=== PATIENT | female | born 1950 | race Caucasian/White ===

== ENCOUNTER 2024-06-28 12:51 | Outpatient (AMB) | payer MEDICARE, MEDICAID, SELFPAY ==
--- NOTE | 2024-06-28 13:00 | PD.ORTHCLVIS ---
Vital signs 06/28/24 13:06 Height 1.55 m Height Method Stated Weight 74.134 kg Weight Measurement Method Standing Scale BMI 30.8 BP 123/67 Blood Pressure Source Automatic Cuff Blood Pressure Location Right Upper Arm Position Sitting Respiration 18 Pulse 83 Pulse Source Monitor Temp 96.9 F Temp Source Temporal Artery Scan Pulse Oximetry (%) 98 Oxygen Delivery Method Room Air Med/Allergies Allergies & Medications Allergies No Known Drug Allergies Allergy (Verified 06/28/24 13:09) Medication Reconciliation ascorbic acid (vitamin C) 1,000 mg tablet 1 g PO Q6H 01/30/24 [History Confirmed 06/28/24] aspirin 81 mg tablet,delayed release 81 mg PO QDAY 01/30/24 [History Confirmed 06/28/24] hydroxyzine HCl 25 mg tablet 25 mg PO BID PRN 01/30/24 [History Confirmed 06/28/24] meloxicam 7.5 mg tablet 7.5 mg PO QDAY #45 tabs 01/30/24 [Rx Confirmed 06/28/24] nabumetone 500 mg tablet 500 mg PO BID 01/30/24 [History Confirmed 06/28/24] omega 7-qsz-acz-fish oil 1,000 mg (120 mg-180 mg) capsule (Fish Oil) 1 cap PO QDAY 01/30/24 [History Confirmed 06/28/24] omeprazole 40 mg capsule,delayed release 40 mg PO QDAY 01/30/24 [History Confirmed 06/28/24] sertraline 25 mg tablet 25 mg PO QDAY 01/30/24 [History Confirmed 06/28/24] vitamin E (dl, acetate) 180 mg (400 unit) capsule 180 mg PO QDAY 01/30/24 [History Confirmed 06/28/24] Exam Exam Patient is in no acute distress and is cooperative with the examination today. Breathing is nonlabored. Patient has a normal mood and affect. Bilateral extremities were evaluated and demonstrates sensation intact to light touch. Palpable pedal pulses are present. No significant edema is present. Bilateral hips were examined. The patient has no pain with log roll of the hips. Internal rotation to 30 degrees and external rotation to 30 degrees is painless. Negative FADIR. Left knee was examined today. The left knee is in reasonable alignment. Range of motion from 0-120 degrees. Knee is stable to varus and valgus as well as AP translation with <5mm. Patient has a negative McMurrays. There is no pain with patellofemoral compression and no crepitus noted. The knee is nontender to palpation. The right knee was also examined. The right knee is in [varus] alignment. Range of motion from [0-115] degrees. Knee is stable to varus and valgus as well as AP translation with <5mm. Patient has a [negative] McMurrays. There is [no] pain with patellofemoral compression and [no] crepitus noted. The knee is [tender] to palpation [medially]. X-rays are not available to view. MRI demonstrates medial and lateral meniscus tears as well as Significant medial tibial edema. There is a subchondral cyst efficiency fracture as well. She obtained new x-rays from [facility]. She has completed we will continue medial joint space Assessment and Plan Problem List (1) Arthritis of right knee: Status: Acute Plan: Patient is a 73-year-old female with a right tibial subchondral insufficiency fracture. She also has severe arthritis. She is doing well with conservative treatment. We recommend a cortisone injection today Recommend knee cortisone injection as patient would like to proceed with conservative treatment at this time. The risks and benefits of the procedure were reviewed with the patient and patient gave verbal consent to continue with the procedure. Procedure: performed by Dr. Reed Using sterile technique the Right knee was thoroughly prepped with alcohol, and approximately 1 cc of Kenalog 40 mg/mL and 4 cc of 1% lidocaine was injected without resistance into the medial tibial femoral joint space. The patient tolerated the procedure. (2) Right medial tibial plateau fracture: Status: Acute Advanced Care Planning Discussion Advance care planning discussed with:: patient Office Procedures GNS Level of Care Nursing/Assessment Patient Status: Established Patient Nursing Assessment/Reassesment: Medication Reconciliation, Update PMH in EMR and Vital Signs Coordination of Care: Complex Care and Chronic Disease 1-5, Education Complex Pt/Fam, Consent,records obtained, informed consent, Results/Orders obtained and Staff clarify orders Established Patient Charge Established Patient Point Assignment: 95 Established Patient Point Charge: EP Level 3 (80-115) Surgical Proc/IM SQ injection Major Surgical Procedure: Yes (KNEE INJECTION ) Medication Given Medication Given Medication Given: Yes Documented Dose Given: 4 Route: Infiitration Medication Given Medication Given Medication Given: Yes Documented Dose Given: 1 Route: Infiitration Office Meds Xylocaine 10 mg/mL (1 %) injection solution Performing Provider: Enmanuel Reed MD Performing Location: [facility] Administered by: Enmanuel Reed MD on 06/28/24 13:11 Dose Route Admin Location Dispensed Lot Number Expiration Date [facility] Manager Labor Delivery 20 mL Infiltration 20 mL [id number] [facility] triamcinolone acetonide 40 mg/mL suspension for injection Performing Provider: Enmanuel Reed MD Performing Location: [facility] Administered by: Cynthia Almazan on 06/28/24 13:11 Dose Route Admin Location Dispensed Lot Number Expiration Date [facility] Manager Labor Delivery 40 mg intra-articular RIGHT KNEE INJECTION 1 mL 10/10/2025 06/28/24 0397-3466-37 TEVA PARENTERAL MA Intake Visit Data Collection New Patient or Established: Established Patient (seen at [facility] within 3 years) Reason for Visit:: RIGHT KNEE PAIN Seen by Clinical Staff ONLY (RN/MA): No Verbal consent obtained for Telemed visit?: No Nuclear Medicine Specialist Required: No PCP or OBGYN visit in last 3 months: Yes Hx Now: No Do You Feel Safe at Home: Yes Authorities Contacted: N/A Questionairres Past Medical History Past Medical History Have you ever been diagnosed with any of the following: Respiratory Problems Smoking: No Smoking Cessation Counseling: No Smoking Exposure: No Psychologic Problems Depression: Yes Anxiety: Yes Subjective Visit Visit for: follow up visit, knee and injections Immunization / Flu Flu Vaccine in the Last 12 Months: Yes Flu Vaccine Exclusion Criteria: Already Received History of Present Illness Chief complaint: right knee osteoarthritis Megha is a 74-year-old female with right knee pain and right knee arthritis. She had a subchondral insufficiency fracture. This the pain did doing well with cortisone injections. She would like another 1 today. She has severe arthritis in the Personal History Occupation: RETIRED Red flag PMH: BMI and none BMI Counceling provided: Yes Pain Pain level (0-10): 10 Pain duration: ALL DAY Pain location: inside (medial), outside (lateral) and anterior Pain quality: sharp and dull Pain timing: increases with activity Ambulatory data Ambulatory device: walker Treatments Improvement with previous injections: No Improvement with PT: No Improvement with NSAIDS: no Review of Systems Review of Systems: All systems negative unless otherwise noted in HPI.
[2024-06-28 13:06] VITALS: BP 123/67; PULSE 83; RESP 18; TEMP 36.1; O2SAT 98; BMI 30.8
== END 2024-06-28 13:16 | disposition home or self-care (01) ==
LOC: HODSRG 12:51
PROVIDERS: Supervising Provider Orthopaedic Surgery Adult Reconstructive Orthopaedic Surgery; Visit Provider Orthopaedic Surgery Adult Reconstructive Orthopaedic Surgery
DX: M17.11 Unilateral primary osteoarthritis, right knee (principal); S82.141D Displaced bicondylar fracture of right tibia, subsequent encounter for closed fracture with routine healing; X58.XXXD Exposure to other specified factors, subsequent encounter
CPT/HCPCS: 20610; 99213; J3301; J3490; G0463

== ENCOUNTER 2024-09-26 13:13 | Outpatient (AMB) | payer MEDICARE, MEDICAID, SELFPAY ==
--- NOTE | 2024-09-26 13:37 | PD.ORTHCLVIS ---
Vital signs 09/26/24 13:41 Height 1.55 m Height Method Stated Weight 69.91 kg Weight Measurement Method Standing Scale BMI 29.0 BP 150/67 H Blood Pressure Source Automatic Cuff Blood Pressure Location Left Upper Arm Position Sitting Respiration 19 Pulse 65 Pulse Source Monitor Temp 96.8 F Temp Source Temporal Artery Scan Pulse Oximetry (%) 97 Oxygen Delivery Method Room Air Med/Allergies Allergies & Medications Allergies No Known Drug Allergies Allergy (Verified 09/26/24 13:42) Medication Reconciliation ascorbic acid (vitamin C) 1,000 mg tablet 1 g PO Q6H 01/30/24 [History Confirmed 09/26/24] aspirin 81 mg tablet,delayed release 81 mg PO QDAY 01/30/24 [History Confirmed 09/26/24] hydroxyzine HCl 25 mg tablet 25 mg PO BID PRN 01/30/24 [History Confirmed 09/26/24] meloxicam 7.5 mg tablet 7.5 mg PO QDAY #45 tabs 01/30/24 [Rx Confirmed 09/26/24] nabumetone 500 mg tablet 500 mg PO BID 01/30/24 [History Confirmed 09/26/24] omega 4-pvs-fiz-fish oil 1,000 mg (120 mg-180 mg) capsule (Fish Oil) 1 cap PO QDAY 01/30/24 [History Confirmed 09/26/24] omeprazole 40 mg capsule,delayed release 40 mg PO QDAY 01/30/24 [History Confirmed 09/26/24] sertraline 25 mg tablet 25 mg PO QDAY 01/30/24 [History Confirmed 09/26/24] vitamin E (dl, acetate) 180 mg (400 unit) capsule 180 mg PO QDAY 01/30/24 [History Confirmed 09/26/24] Exam Exam Patient is in no acute distress and is cooperative with the examination today. Breathing is nonlabored. Patient has a normal mood and affect. Bilateral extremities were evaluated and demonstrates sensation intact to light touch. Palpable pedal pulses are present. No significant edema is present. Bilateral hips were examined. The patient has no pain with log roll of the hips. Internal rotation to 30 degrees and external rotation to 30 degrees is painless. Negative FADIR. Left knee was examined today. The left knee is in reasonable alignment. Range of motion from 0-120 degrees. Knee is stable to varus and valgus as well as AP translation with <5mm. Patient has a negative McMurrays. There is no pain with patellofemoral compression and no crepitus noted. The knee is nontender to palpation. The right knee was also examined. The right knee is in [varus] alignment. Range of motion from [0-115] degrees. Knee is stable to varus and valgus as well as AP translation with <5mm. Patient has a [negative] McMurrays. There is [no] pain with patellofemoral compression and [no] crepitus noted. The knee is [tender] to palpation [medially]. X-rays are not available to view. MRI demonstrates medial and lateral meniscus tears as well as Significant medial tibial edema. There is a subchondral cyst efficiency fracture as well. She obtained new x-rays from [facility]. She has Complete joint space obliteration of the medial joint space and osteophytes. Assessment and Plan Problem List (1) Arthritis of right knee: Status: Acute Plan: Patient is a 73-year-old female with Severe arthritis of the right knee. We thus discussed total knee replacement is a reasonable option as she has tried physical therapy, anti-inflammatories, and injections. However we do have is that she lives alone. She has no social support at all at home and she would need to go to a residential home. We would need to figure out this issue before proceeding The nature and purpose of the total hip replacement, alternative method(s) of treatment, the material risks involved, and the possibility of complications were fully explained to the patient. The patient does NOT have any of the following contraindications to [facility]: - Active infection of the hip joint, OR - Active systemic bacteremia, OR - Active skin infection or open wound at surgical site, OR - Neuropathic arthritis, OR - Severe, rapidly progressive neurological disease, OR - Severe medical condition that makes risks of the surgery outweigh the potential benefit The patient was told the most common risks and complications associated with a total hip replacement include, but are not limited to: blood clots in the leg, fatal pulmonary embolism, dislocation of the prosthesis, intraoperative and postoperative fractures of the femur or acetabulum, infection, failure of the prosthesis or grafting materials, complications from anesthesia, reactions to blood transfusions, postoperative leg length inequality, instability of the hip replacement, nerve damage or injury, vascular injury, delayed wound healing, infection, other injury or even . In addition, there are risks associated with anesthesia given during this operation. Also, the patient was told that after undergoing a total hip replacement there may still be persistent pain or disability. The patient was informed that the success of this operation in part depends upon the mechanical devices which are going to be implanted and that these devices can fail or malfunction, and may need to be repaired or replaced and there are no guarantees as to the longevity of this device or its parts and that it or its parts could fail prematurely. The patient was also notified that during the course of surgery, there may be a need to use bone graft from donors, and that any bone graft used will be carefully screened for communicable diseases, including AIDS, hepatitis, Will-Creutzfeldt, or other diseases, but despite the screening procedures, there is a small chance that they could contract one of these diseases. Finally, the patient was asked to follow completely and fully with all advice and recommended treatments, and that recovery and ultimate outcome are affected by their compliance with recommended treatment. We discussed the risks, benefits and treatment alternatives, and the patient is interested in proceeding with surgery. We will try to set this up as expeditiously as possible. (2) Right medial tibial plateau fracture: Status: Acute Advanced Care Planning Discussion Advance care planning discussed with:: patient Office Procedures GNS Level of Care Nursing/Assessment Patient Status: Established Patient Nursing Assessment/Reassesment: Medication Reconciliation, Update PMH in EMR and Vital Signs Coordination of Care: Complex Care and Chronic Disease 1-5, Education Complex Pt/Fam, Consent,records obtained, informed consent, Results/Orders obtained and Staff clarify orders Established Patient Charge Established Patient Point Assignment: 95 Established Patient Point Charge: EP Level 3 (80-115) MA Intake Visit Data Collection New Patient or Established: Established Patient (seen at [facility] within 3 years) Seen by Clinical Staff ONLY (RN/MA): No PCP or OBGYN visit in last 3 months: Yes Hx Now: No Do You Feel Safe at Home: Yes Authorities Contacted: N/A Questionairres Past Medical History Past Medical History Have you ever been diagnosed with any of the following: Respiratory Problems Smoking: No Smoking Cessation Counseling: No Smoking Exposure: No Psychologic Problems Depression: Yes Anxiety: Yes Subjective Visit Visit for: follow up visit Immunization / Flu Flu Vaccine in the Last 12 Months: No Flu Vaccine Exclusion Criteria: No Exclusion Criteria History of Present Illness Chief complaint: right knee osteoarthritis Megha is a 74-year-old female with right knee pain and right knee arthritis. She had a subchondral insufficiency fracture And severe right knee arthritis. She has had multiple injections in the past which have only helped for about a month. He is also tried anti-inflammatories and formal physical therapy with minimal relief. She reports she can only walk a short distance and is using a walker because of the pain Personal History Occupation: RETIRED Red flag PMH: BMI and none BMI Counceling provided: Yes Pain Pain level (0-10): 5 Pain duration: ALL DAY Pain location: anterior Pain quality: dull and aching Pain timing: increases with activity Associated signs & symptoms: none Ambulatory data Ambulatory device: walker Treatments Improvement with previous injections: No Improvement with PT: No Improvement with NSAIDS: no Review of Systems Review of Systems: All systems negative unless otherwise noted in HPI.
[2024-09-26 13:41] VITALS: BP 150/67; PULSE 65; RESP 19; TEMP 36; O2SAT 97; BMI 29.0
--- NOTE | 2024-09-26 13:50 | XR_ITS ---
Examination: Right knee 4 views TECHNIQUE: AP oblique lateral axial right knee 4 views Exam date and time: September 26, 2024 at 1359 hours INDICATIONS: Knee pain years. FINDINGS: Moderate to advanced tricompartment osteoarthritis, most severe medial joint space Small knee effusion No patellar dislocation There is mild depression of the medial tibial plateau, clinical correlation advised IMPRESSION: Moderate to advanced tricompartment osteoarthritis There is mild depression the medial tibial plateau, if there is recent trauma consider CT scan knee without contrast follow-up
== END 2024-09-26 13:55 | disposition home or self-care (01) ==
PROVIDERS: Supervising Provider Orthopaedic Surgery Adult Reconstructive Orthopaedic Surgery; Visit Provider Orthopaedic Surgery Adult Reconstructive Orthopaedic Surgery
DX: M17.11 Unilateral primary osteoarthritis, right knee (principal); S82.141D Displaced bicondylar fracture of right tibia, subsequent encounter for closed fracture with routine healing; X58.XXXD Exposure to other specified factors, subsequent encounter; M25.561 Pain in right knee
CPT/HCPCS: 73564; 99213; G0463

== ENCOUNTER 2024-12-05 14:00 | Outpatient (AMB) | payer MEDICARE, MEDICAID, SELFPAY ==
[2024-12-05 14:19] VITALS: BP 120/67; PULSE 68; RESP 16; TEMP 36.1; O2SAT 93
--- NOTE | 2024-12-05 14:19 | ORTHONT_ITS ---
Vital signs 12/05/24 14:19 Height 1.55 m Height Method Stated Weight 72.178 kg Weight Measurement Method Standing Scale BMI 30.0 BP 120/67 Blood Pressure Source Automatic Cuff Blood Pressure Location Left Upper Arm Position Sitting Respiration 16 Pulse 68 Pulse Source Monitor Temp 96.9 F Temp Source Temporal Artery Scan Pulse Oximetry (%) 93 L Oxygen Delivery Method Room Air Med/Allergies Allergies & Medications Allergies No Known Drug Allergies Allergy (Verified 12/05/24 14:20) Medication Reconciliation ascorbic acid (vitamin C) 1,000 mg tablet 1 g PO Q6H 01/30/24 [History Confirmed 12/05/24] aspirin 81 mg tablet,delayed release 81 mg PO QDAY 01/30/24 [History Confirmed 12/05/24] hydroxyzine HCl 25 mg tablet 25 mg PO BID PRN 01/30/24 [History Confirmed 12/05/24] meloxicam 7.5 mg tablet 7.5 mg PO QDAY #45 tabs 01/30/24 [Rx Confirmed 12/05/24] nabumetone 500 mg tablet 500 mg PO BID 01/30/24 [History Confirmed 12/05/24] omega 3-jxs-nsc-fish oil 1,000 mg (120 mg-180 mg) capsule (Fish Oil) 1 cap PO QDAY 01/30/24 [History Confirmed 12/05/24] omeprazole 40 mg capsule,delayed release 40 mg PO QDAY 01/30/24 [History Confirmed 12/05/24] sertraline 25 mg tablet 25 mg PO QDAY 01/30/24 [History Confirmed 12/05/24] vitamin E (dl, acetate) 180 mg (400 unit) capsule 180 mg PO QDAY 01/30/24 [History Confirmed 12/05/24] atorvastatin 10 mg tablet (Lipitor) 10 mg PO QDAY 12/05/24 [History Confirmed 12/05/24] Exam Exam Patient is in no acute distress and is cooperative with the examination today. Breathing is nonlabored. Patient has a normal mood and affect. Bilateral extremities were evaluated and demonstrates sensation intact to light touch. Palpable pedal pulses are present. No significant edema is present. Bilateral hips were examined. The patient has no pain with log roll of the hips. Internal rotation to 30 degrees and external rotation to 30 degrees is painless. Negative FADIR. Left knee was examined today. The left knee is in reasonable alignment. Range of motion from 0-120 degrees. Knee is stable to varus and valgus as well as AP translation with <5mm. Patient has a negative McMurrays. There is no pain with patellofemoral compression and no crepitus noted. The knee is nontender to palpation. The right knee was also examined. The right knee is in [varus] alignment. Range of motion from [0-115] degrees. Knee is stable to varus and valgus as well as AP translation with <5mm. Patient has a [negative] McMurrays. There is [no] pain with patellofemoral compression and [no] crepitus noted. The knee is [tender] to palpation [medially]. X-rays are not available to view. MRI demonstrates medial and lateral meniscus tears as well as Significant medial tibial edema. There is a subchondral cyst efficiency fracture as well. She obtained new x-rays from [facility]. She has Complete joint space obliteration of the medial joint space and osteophytes. Assessment and Plan Problem List (1) Arthritis of right knee: Status: Acute Plan: Patient is a 73-year-old female with Severe arthritis of the right knee. We thus discussed total knee replacement is a reasonable option as she has tried physical therapy, anti-inflammatories, and injections. However we do have is that she lives alone. She has no social support at all at home and she would need to go to a penitentiary home. We would need to figure out this issue before proceeding. The nature and purpose of the total hip replacement, alternative method(s) of treatment, the material risks involved, and the possibility of complications were fully explained to the patient. The patient does NOT have any of the following contraindications to HAMILTON: - Active infection of the hip joint, OR - Active systemic bacteremia, OR - Active skin infection or open wound at surgical site, OR - Neuropathic arthritis, OR - Severe, rapidly progressive neurological disease, OR - Severe medical condition that makes risks of the surgery outweigh the potential benefit The patient was told the most common risks and complications associated with a total hip replacement include, but are not limited to: blood clots in the leg, fatal pulmonary embolism, dislocation of the prosthesis, intraoperative and postoperative fractures of the femur or acetabulum, infection, failure of the prosthesis or grafting materials, complications from anesthesia, reactions to blood transfusions, postoperative leg length inequality, instability of the hip replacement, nerve damage or injury, vascular injury, delayed wound healing, infection, other injury or even . In addition, there are risks associated with anesthesia given during this operation. Also, the patient was told that after undergoing a total hip replacement there may still be persistent pain or disability. The patient was informed that the success of this operation in part depends upon the mechanical devices which are going to be implanted and that these devices can fail or malfunction, and may need to be repaired or replaced and there are no guarantees as to the longevity of this device or its parts and that it or its parts could fail prematurely. The patient was also notified that during the course of surgery, there may be a need to use bone graft from donors, and that any bone graft used will be carefully screened for communicable diseases, including AIDS, hepatitis, Will-Creutzfeldt, or other diseases, but despite the screening procedures, there is a small chance that they could contract one of these diseases. Finally, the patient was asked to follow completely and fully with all advice and recommended treatments, and that recovery and ultimate outcome are affected by their compliance with recommended treatment. We discussed the risks, benefits and treatment alternatives, and the patient is interested in proceeding with surgery. We will try to set this up as expeditiously as possible. (2) Right medial tibial plateau fracture: Status: Acute Advanced Care Planning Discussion Advance care planning discussed with:: patient Office Procedures GNS Level of Care Nursing/Assessment Patient Status: Established Patient Nursing Assessment/Reassesment: Medication Reconciliation, Update PMH in EMR and Vital Signs Coordination of Care: Complex Care and Chronic Disease 1-5, Education Complex Pt/Fam, Consent,records obtained, informed consent, Results/Orders obtained and Staff clarify orders Established Patient Charge Established Patient Point Assignment: 95 Established Patient Point Charge: EP Level 3 (80-115) MA Intake Visit Data Collection New Patient or Established: Established Patient (seen at [facility] within 3 years) Reason for Visit:: PRE OP RT TKA Seen by Clinical Staff ONLY (RN/MA): No Inside Channel Account Manager Required: No PCP or OBGYN visit in last 3 months: Yes Hx Now: No Do You Feel Safe at Home: Yes Authorities Contacted: N/A Questionairres Past Medical History Past Medical History Have you ever been diagnosed with any of the following: Respiratory Problems Smoking: No Smoking Cessation Counseling: No Smoking Exposure: No Psychologic Problems Depression: Yes Anxiety: Yes Subjective Visit Visit for: follow up visit and knee (RIGHT ) Immunization / Flu Flu Vaccine in the Last 12 Months: Yes Flu Vaccine Exclusion Criteria: Already Received History of Present Illness Chief complaint: right knee osteoarthritis Megha is a 74-year-old female with right knee pain and right knee arthritis. She had a subchondral insufficiency fracture And severe right knee arthritis. She has had multiple injections in the past which have only helped for about a month. He is also tried anti-inflammatories and formal physical therapy with minimal relief. She reports she can only walk a short distance and is using a walker because of the pain Personal History Occupation: RETIRED Red flag PMH: none BMI Counceling provided: Yes Pain Pain level (0-10): 6 Pain duration: 1 MONTH Pain location: anterior Pain quality: sharp and other (specify) (SWELLING/CRAMPING ) Pain timing: increases with activity Associated signs & symptoms: none Ambulatory data Ambulatory device: walker Walking distance (minutes): 1 Treatments Number of previous injections: 2 Improvement with previous injections: No Number of Physical Therapy sessions: 2 Improvement with PT: No Improvement with NSAIDS: n/a Review of Systems Review of Systems: All systems negative unless otherwise noted in HPI.
== END 2024-12-05 14:41 | disposition home or self-care (01) ==
LOC: HODSRG 14:00
PROVIDERS: PCP Family Medicine; Referring Provider Family Medicine; Supervising Provider Orthopaedic Surgery Adult Reconstructive Orthopaedic Surgery; Visit Provider Orthopaedic Surgery Adult Reconstructive Orthopaedic Surgery
DX: M17.11 Unilateral primary osteoarthritis, right knee (principal); S82.141D Displaced bicondylar fracture of right tibia, subsequent encounter for closed fracture with routine healing; X58.XXXD Exposure to other specified factors, subsequent encounter; M25.561 Pain in right knee
CPT/HCPCS: 99213; G0463

== ENCOUNTER 2024-12-23 06:45 | Day surgery (SDC) | payer MEDICARE, MEDICAID, SELFPAY ==
[2024-12-18 16:49] LABS: Basophils # (Auto) 0.0 Thou/mm3 (0.0-0.2); Basophils % (Auto) 1 % (0-2.5); Eosinophils # (Auto) 0.1 Thou/mm3 (0.0-0.5); Eosinophils % (Auto) 2 % (0-10); Hematocrit 34.5 % (36.0-46.0); Hemoglobin 11.8 g/dL (12.0-16.0); Immature Granulocytes Auto 0.01 Thou/mm3 (0.00-0.00); Lymphocytes # (Auto) 1.3 Thou/mm3 (1.0-4.8); Lymphocytes % (Auto) 23 % (10-50); Mean Corpuscular HGB Conc 34.2 g/dl (31.0-37.0); Mean Corpuscular Hemoglobin 30.1 pg (25.0-35.0); Mean Corpuscular Volume 88 fL (80-100); Monocytes # (Auto) 0.7 Thou/mm3 (0.0-0.8); Monocytes % (Auto) 12 % (0-12); Neutrophils # (Auto) 3.6 Thou/mm3 (1.8-7.7); Neutrophils % (Auto) 63 % (37-80); Nucleated Red Blood Cell # 0.00 Thou/mm3 (0.00-0.00); Nucleated Red Blood Cell % 0 /100 WBC (0); Platelet Count 308 Thou/mm3 (140-440); RDW Standard Deviation 44.3 fL (36.4-46.3); Red Blood Count 3.92 Miln/mm3 (4.00-5.20); White Blood Count 5.7 Thou/mm3 (3.6-11.0)
[2024-12-18 16:56] LABS: INR 1.0 (0.9-1.3); Partial Thromboplastin Time 28.9 Seconds (22.0-36.0); Prothrombin Time 11.2 Seconds (9.0-12.2)
[2024-12-18 17:16] LABS: Alanine Aminotransferase 17 U/L (10-49); Albumin, Serum 4.2 gm/dL (3.4-4.8); Albumin/Globulin Ratio 1.6 (1.2-2.2); Alkaline Phosphatase 100 U/L (46-116); Anion Gap 9 (7-16); Aspartate Amino Transferase 28 U/L (0-34); BUN/Creatinine Ratio 32 Ratio (12-20); Bilirubin,Total 0.5 mg/dL (0.3-1.2); Blood Urea Nitrogen 29 mg/dL (9-23); Calcium 9.5 mg/dL (8.3-10.6); Calcium (Corrected) 9.5 mg/dL (8.5-10.1); Carbon Dioxide 29.5 mMol/L (20.0-31.0); Chloride 105 mMol/L (98-107); Creatinine (Component) 0.9 mg/dL (0.6-1.3); Globulin 2.6 gm/dL (2.3-3.5); Glucose 101 mg/dL (74-106); Osmolality,Calculated 290 (275-295); Potassium 4.3 mMol/L (3.4-5.1); Sodium 143 mMol/L (136-145); Total Protein 6.8 gm/dL (5.7-8.2); eGFR > 60 See Note
[2024-12-19 09:57] VITALS: BMI 29.0
--- NOTE | 2024-12-20 13:56 | SUR.PREOP ---
Pt takes MS Contin daily for chronic pain, per Dr Hirsch pt ok to take med 2 hrs before arriving, pt notified.
[2024-12-23] VITALS (10 sets, daily range): BP systolic 97–161; BP diastolic 55–84; PULSE 61–84; RESP 12–20; TEMP 36.6; O2SAT 95–100; BMI 28.4; BMI 13.0
--- NOTE | 2024-12-23 07:50 | SUR.PREOP ---
Patient expressed gratitude for prayer before their procedure.
--- NOTE | 2024-12-23 07:52 | EKG_ITS ---
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
[2024-12-23] MEDS: ACETAMINOPHEN 325 MG TABLET 650 MG PO (08:24)
[2024-12-23] MEDS: RINGERS LACTATED 1000 ML 1,000 ML 20 ML IV (08:25)
[2024-12-23] MEDS: MELOXICAM 7.5 MG TABLET PO (08:25)
--- NOTE | 2024-12-23 09:08 | PD.ORTHPN ---
Subjective Subjective Brief History: right knee pain Narrative: Patient is a 74-year-old female with right knee pain. She does have a history of chronic back pain and is on morphine 30 ER as well as morphine IR. I discussed with her that she is on a lot of pain medication. Her pain management doctor will provide the pain medication after surgery and she let me know that he agreed to this. I discussed with her that she is on a lot of pain medications and that I recommend weaning if possible. She reports that she is actually already weaned her pain medication is cut in half. I discussed with her that this is still a lot of pain medication and that pain management will be very difficult after surgery as her body has likely already been desensitized to opioids. She understands this and would still like to proceed with surgery. In addition, we discussed her social support at home. She does have a sister as well as a son that lives nearby. She reports that discussing pain medications with her son is very sensitive topic and she does not want me to do this. She would like to go to a retirement facility if possible in light of these's situations. She can go home if necessary as well. I will defer to physical therapy to see how she does. We discussed the risk of surgery in great detail again and she would like to proceed with a total knee replacement. she understands that pain will be very difficult to control postoperatively. Exam Vital Signs Temp Pulse Resp BP Pulse Ox 98 F 63 18 129/79 97 12/23/24 07:22 12/23/24 07:22 12/23/24 07:22 12/23/24 07:22 12/23/24 07:22 Objective - Ortho Labs 12/18/24 16:15 12/18/24 16:15 Assessment & Plan Diagnosis (1) Arthritis of right knee: Status: Acute Assessment Additional comments: The nature and purpose of the total knee replacement, alternative method(s) of treatment, the material risks involved, and the possibility of complications were fully explained to the patient. The patient does NOT have any of the following contraindications to TKA: - Active infection of the knee joint, OR - Active systemic bacteremia, OR - Active skin infection or open wound at surgical site, OR - Neuropathic arthritis, OR - Severe, rapidly progressive neurological disease, OR - Severe medical condition that makes risks of surgery outweigh the potential benefit The patient was told the most common risks and complications associated with a total knee replacement include, but are not limited to: blood clots in the leg, fatal pulmonary embolism, dislocation of the prosthesis, intraoperative and postoperative fractures of the femur or tibia, infection, failure of the prosthesis or grafting materials, complications from anesthesia, reactions to blood transfusions, postoperative leg length inequality, instability of the knee replacement, nerve damage or injury, vascular injury, delayed wound healing, infection, other injury or even . In addition, there are risks associated with anesthesia given during this operation. Also, the patient was told that after undergoing a total knee replacement there may still be persistent pain or disability. The patient was informed that the success of this operation in part depends upon the mechanical devices which are going to be implanted and that these devices can fail or malfunction, and may need to be repaired or replaced and there are no guarantees as to the longevity of this device or its parts and that it or its parts could fail prematurely. The patient was also notified that during the course of surgery, there may be a need to use bone graft from donors, and that any bone graft used will be carefully screened for communicable diseases, including AIDS, hepatitis, Will-Creutzfeldt, or other diseases, but despite the screening procedures, there is a small chance that they could contract one of these diseases. Finally, the patient was asked to follow completely and fully with all advice and recommended treatments, and that recovery and ultimate outcome are affected by their compliance with recommended treatment. We discussed the risks, benefits and treatment alternatives, and the patient is interested in proceeding with surgery. We will try to set this up as expeditiously as possible.
--- NOTE | 2024-12-23 10:47 | PD.SUROPNT ---
Date of Procedure 12/23/24 Pre Op Diagnosis right knee osteoarthritis Post Op Diagnosis right knee osteoarthritis Procedure right total knee replacement enrique Findings full thickness cartilage loss and osteophytes Procedure Description Indication: The patient is a 74 year old who has a long history of right knee pain. X-rays show degenerative arthritis involving the knee. Over the past several years the patient has had increasing pain, progressive limitation in function. He has failed conservative measures including activity modification, physical therapy, injections, anti-inflammatories, and assistive devices. After a lengthy discussion of the risks and benefits, the patient presents now for total knee replacement. The nature and purpose of the total knee replacement, alternative method(s) of treatment, the material risks involved, and the possibility of complications were fully explained to the patient. The patient was told the most common risks and complications associated with a total knee replacement include, but are not limited to blood clots in the leg, fatal pulmonary embolism, dislocation of the prosthesis, intraoperative and postoperative fractures of the femur or tibia, infection, failure of the prosthesis or grafting materials, complications from anesthesia, reactions to blood transfusions, postoperative leg length inequality, instability of the knee replacement, nerve damage or injury, vascular injury, delayed wound healing, infections, other injury or even . In addition, there are risks associated with anesthesia given during this operation, temporary or permanent numbness on the skin lateral to the incision can be a complication unique to total knee surgery, and kneeling can be painful after knee replacement surgery. Also, the patient was told that after undergoing a total knee replacement there may still be pain or disability. We discussed with the patient that we will be using a robot-assisted technology. We discussed that there is a possibility of converting to manual instrumentation. The patient was informed that the success of this operation in part depends upon the mechanical devices which are going to be implanted and that these devices can fail or malfunction, and may need to be repaired or replaced and there are no guarantees as to the longevity of this device or its part and that it or its parts could fail prematurely. Finally, the patient was asked to follow completely and fully with all advice and recommended treatments, and that recovery and ultimate outcome are affected by their compliance with recommended treatment. Surgical technique: Patient was marked and consented in the pre-operative area. The patient was brought to the operating room and placed on the operating table in a supine position. Prior to positioning, a timeout procedure was performed between the surgeon, the anesthesiologist, and the nursing staff where the patient and the operative side were identified and confirmed. After adequate general anesthetic was obtained, the right lower extremity was prepped and draped in the usual sterile fashion. A weight based dose of Cefazolin were administered within 1 hour prior to incision. The robot was preregistered and calirated before the incision. The extremity was exsanguinated with an esmarch badge and tourniquet inflated to 250mmHg. A midline incision was made. A median parapatellar arthrotomy was made. The patella was subluxed laterally. A medial release was performed to expose the medial tibia. His femoral and tibial pins were placed through an intra incisional manner for both cases. Every effort was made to ensure that the distalmost aspect of the pin was hung in the second cortex. The arrays were then tightened several times to ensure that it was fixed for the remainder of the case. Both femoral and tibial checkpoints were then placed. We then went through the registration process of the bone. We then assessed the knee deformity and attempted to correct it. We also used the robot to aid in judging laxity in both extension and flexion. Final based on laxity and alignment we changed the preoperative assessment to obtain proper proper implant positioning and to correct deformity. Attention was then placed to the tibia. We made a tibial cut using the robot ensuring that both the MCL and the patella tendon were protected with retractors. We then went to the femur and made the posterior cut followed by the anterior cut and the anterior chamfer. The bone was then removed and we made a distal femur cut and a posterior chamfer cut. We verified all cuts. A trial reduction was performed with a size 3 femoral component and a size 3 keeled tibial component. The patella tracked centrally, and no lateral retinacular release was necessary. The trial implants were removed. The arrays, pins, and checkpoints were all removed. We performed a verification that all pins were removed. The cut bone surfaces were lavaged. A size [3] right femoral component, a size 3 keeled tibial component were impacted into position using 2 bags of palacos. A trial insert was placed into position. The knee was placed in extension until the cement hardened. The knee was felt to be well balanced in the sagittal and coronal plane. The final 3x10 mm cruciate-substituting articular insert was impacted into the tibial tray. The knee was brought out to full extension, flexed up to 120 degrees. It was stable to varus and valgus stress and appropriately balanced in flexion and extension. The wounds were copiously irrigated following deflation of tourniquet. The medial retinaculum was reapproximated with #1 vicryl and quill. The subcutaneous tissues were closed with 0 and 2-0 interrupted Vicryl. The skin was closed with 3-0 Monofilament V loc suture. A sterile dressing was applied. The patient was transferred to a bed and brought to recovery in stable condition. The patient tolerated the procedure well. There were no intraoperative complications. Sponge and needle counts were correct times 2. As the attending surgeon, I attest I was present and performed the entire operation. Grafts/Implants Size [3] CR Femur Size 3 Tibia 10mm poly CS 2 bags of palacos Anesthesia GETA Implants Petsy Pathology / specimen None Pathology comment: none Estimated Blood Loss 150 Condition Stable Disposition same day Surgeon Enmanuel Reed MD Surgical Staff Operation Date: 12/23/24 10:00 Case Staff Anesthesiologist: Duc Hirsch RNdirector clinical operations: Shana Alford
--- NOTE | 2024-12-23 10:49 | XR_ITS ---
Examination: Right knee 2 views Technique one AP lateral right knee 2 views Date and time: December 23, 2024 1147 hours INDICATIONS: Postop knee replacement FINDINGS: Total right knee replacement. Satisfactory alignment No fracture IMPRESSION: Total right knee replacement with satisfactory alignment
--- NOTE | 2024-12-23 11:10 | SUR.PHASEI ---
pt arrived to PACU via gurney with nasal airway present, breathing unlabored, dressing to right lower extremity clean, dry, and intact, pedal pulses present/equal/strong bilaterally, circulation to toes WNL, report from Amara DELEON, and Dr Hirsch
--- NOTE | 2024-12-23 11:35 | SUR.PHASEI ---
pt tolerating oral fluids without difficulty swallowing or n/v
--- NOTE | 2024-12-23 11:58 | SUR.PHASEII ---
Received report on pt. s/p surgery from Natalie Babin RN. Pt. is resting, VSS, no c/o pain or nausea at this time, dressing to right knee CDI.
--- NOTE | 2024-12-23 12:12 | SUR.PHASEII ---
Physical Therapist Nessa at bedside.
--- NOTE | 2024-12-23 12:33 | SUR.PHASEII ---
pt returning to [facility] from walking with physical therapy, dressing clean, dry, and intact to right lower extremity, will connect to monitors, report from Milena DELEON
--- NOTE | 2024-12-23 13:30 | SUR.PHASEII ---
pt awake, alert, able to follow commands, breathing unlabored, dressing to right lower extremity clean, dry, and intact, circulation to bilateral toes WNL, pedal pulses present/equal/strong bilaterally VS stable, discharge instructions given with sister Maria Victoria present, all questions answered, pt able to ambulate to bathroom with steady gait, pt able to dress self, pt discharged via wheelchair with all belongings and copies of discharge paperwork.
--- NOTE | 2024-12-27 16:58 | PD.ANESPROG ---
Documentation for date of: 12/27/24 POST ANESTHESIA NOTE: Patient had GETA and R adductor canal block for R TKA on 12/23/24. I just called and spoke with her on the phone and she denied any problems from anesthesia. Duc Hirsch MD Anesthesia Progress Note Progress Note Most recent Vital Signs: Last Vital Signs Temp 97.9 F 12/23/24 13:05 Pulse 65 12/23/24 13:05 Resp 20 12/23/24 13:05 BP 114/67 12/23/24 13:05 Pulse Ox 95 12/23/24 13:05 O2 Flow Rate 3 12/23/24 12:05
== END 2024-12-23 13:30 | disposition home or self-care (01) ==
PROVIDERS: Anesthesiology; PCP Family Medicine; Referring Provider Orthopaedic Surgery Adult Reconstructive Orthopaedic Surgery; Visit Provider Orthopaedic Surgery Adult Reconstructive Orthopaedic Surgery
PROC: (CPT 27447; principal; 2024-12-23 09:45)
DX: M17.11 Unilateral primary osteoarthritis, right knee (principal); Z01.810 Encounter for preprocedural cardiovascular examination; M25.761 Osteophyte, right knee
CPT/HCPCS: 27447; 20985; 36415; 73560; 80053; 85025; 85610; 85730; 93005; 97162; A4217; C1713; C1776; J1100; J1171; J2250; J2270; J2371; J2405; J2704; J2710; J2765; J2795; J3010; J3490; J7120; J7999; A4648; A4649; A9270; J1596

== ENCOUNTER 2025-01-07 09:36 | Outpatient (AMB) | payer MEDICARE, MEDICAID, SELFPAY ==
--- NOTE | 2025-01-07 09:42 | PD.ORTHCLVIS ---
Vital signs 01/07/25 09:58 Height 1.5 m Height Method Stated Weight 74.559 kg Weight Measurement Method Standing Scale BMI 33.1 BP 123/76 Blood Pressure Source Automatic Cuff Blood Pressure Location Left Upper Arm Position Sitting Respiration 18 Pulse 66 Pulse Source Monitor Temp 96.8 F Temp Source Temporal Artery Scan Pulse Oximetry (%) 92 L Oxygen Delivery Method Room Air Med/Allergies Allergies & Medications Allergies gabapentin Allergy (Intermediate, Verified 01/07/25 09:58) swelling trazodone Allergy (Verified 01/07/25 09:58) Blister Medication Reconciliation hydroxyzine HCl 25 mg tablet 25 mg PO HS PRN imsomnia 01/30/24 [History Confirmed 01/07/25] vitamin E (dl, acetate) 180 mg (400 unit) capsule 180 mg PO QDAY 01/30/24 [History Confirmed 01/07/25] ascorbic acid (vitamin C) 1,000 mg tablet (C-1000) 1 g PO QDAY 12/19/24 [History Confirmed 01/07/25] atorvastatin 20 mg tablet (Lipitor) 20 mg PO QDAY 12/19/24 [History Confirmed 01/07/25] calcium 600 mg (as carbonate)-vitamin D3 5 mcg (200 unit) tablet 1 tab PO BID 12/19/24 [History Confirmed 01/07/25] docusate sodium 100 mg capsule (Colace) 100 mg PO BID 12/19/24 [History Confirmed 01/07/25] esomeprazole magnesium 40 mg capsule,delayed release 40 mg PO DAILY 12/19/24 [History Confirmed 01/07/25] lactulose 10 gram/15 mL oral solution 30 g PO DAILY PRN constipation 12/19/24 [History Confirmed 01/07/25] morphine 15 mg immediate release tablet 15 mg PO DAILY PRN pain 12/19/24 [History Confirmed 01/07/25] morphine 30 mg tablet,extended release 30 mg PO DAILY 12/19/24 [History Confirmed 01/07/25] multivitamin (Daily Multi-Vitamin tablet) 1 tab PO QAM 12/19/24 [History Confirmed 01/07/25] sertraline 100 mg tablet (Zoloft) 100 mg PO QDAY 12/19/24 [History Confirmed 01/07/25] aspirin 81 mg tablet,delayed release 81 mg PO BID #60 tabs 12/23/24 [Rx Confirmed 01/07/25] doxycycline hyclate 100 mg tablet 100 mg PO BID #14 tabs 12/23/24 [Rx Confirmed 01/07/25] sennosides 8.6 mg-docusate sodium 50 mg tablet (Senna-S) 1 tab-cap PO QDAY #30 tabs 12/23/24 [Rx Confirmed 01/07/25] Exam Exam Patient is in no acute distress and is cooperative with the examination today. Breathing is nonlabored. Patient has a normal mood and affect. Bilateral extremities were evaluated and demonstrates sensation intact to light touch. Palpable pedal pulses are present. No significant edema is present. Bilateral hips were examined. The patient has no pain with log roll of the hips. Internal rotation to 30 degrees and external rotation to 30 degrees is painless. Negative FADIR. Left knee was examined today. The left knee is in reasonable alignment. Range of motion from 0-120 degrees. Knee is stable to varus and valgus as well as AP translation with <5mm. Patient has a negative McMurrays. There is no pain with patellofemoral compression and no crepitus noted. The knee is nontender to palpation. Right knee incisions clean dry intact. Range of motion is 0 to 95 degrees at this time. There is minimal swelling. The incision is clean dry and intact Assessment and Plan Problem List (1) Right medial tibial plateau fracture: Status: Acute (2) Arthritis of right knee: Status: Acute Plan: Patient is a 73-year-old female with Severe arthritis of the right knee. She is status post right total knee replacement and is doing well. She has been doing well at home We will see her back in 4 weeks for routine follow-up Advanced Care Planning Discussion Advance care planning discussed with:: patient Office Procedures GNS Level of Care Nursing/Assessment Patient Status: Established Patient Nursing Assessment/Reassesment: Medication Reconciliation, Update PMH in EMR and Vital Signs Coordination of Care: Complex Care and Chronic Disease 1-5, Education Complex Pt/Fam, Consent,records obtained, informed consent, Results/Orders obtained and Staff clarify orders Established Patient Charge Established Patient Point Assignment: 95 Established Patient Point Charge: EP Level 3 (80-115) MA Intake Visit Data Collection New Patient or Established: Established Patient (seen at [facility] within 3 years) Reason for Visit:: PRE OP RT TKA Seen by Clinical Staff ONLY (RN/MA): No Wireless Cellular Technician Required: No PCP or OBGYN visit in last 3 months: Yes Hx Now: No Do You Feel Safe at Home: Yes Authorities Contacted: N/A Questionairres Past Medical History Past Medical History Have you ever been diagnosed with any of the following: Neurological Problems Seizures: No Cardiology Problems Hypercholesterolemia: Yes Congestive Heart Failure: No Respiratory Problems Chronic Obstructive Pulmonary Disease (COPD): No Smoking: No Smoking Cessation Counseling: No Smoking Exposure: No Stomache/Intestinal Problems Hepatitis: No Hiatal Hernia: Yes Genital/Urinary Problems Renal Disease: No Reproductive Problems Previous Pregnancies: Yes Musculoskeletal Problems Arthritis: Yes Degenerative Disk Disease: Yes Fractures: Yes (vertabrae) Endocrine Problems Diabetes Mellitus Type 1: No Diabetes Mellitus Type 2: No Psychologic Problems Depression: Yes Anxiety: Yes Other Problems Hospitalization: Yes (surgery) Shingles: No Falls: Yes Blood Transfusions: No Anesthesia Reactions: No Cancer: No Subjective Visit Visit for: follow up visit and knee (RIGHT ) Immunization / Flu Flu Vaccine in the Last 12 Months: Yes Flu Vaccine Exclusion Criteria: Already Received History of Present Illness Chief complaint: right knee osteoarthritis Megha is a 74-year-old female with right knee pain and right knee arthritis. She is status post right total knee replacement. She is doing well. Using a walker Personal History Occupation: RETIRED Red flag PMH: none BMI Counceling provided: Yes Pain Pain level (0-10): 6 Pain duration: 1 MONTH Pain location: anterior Pain quality: sharp and other (specify) (SWELLING/CRAMPING ) Pain timing: increases with activity Associated signs & symptoms: none Ambulatory data Ambulatory device: walker Walking distance (minutes): 1 Treatments Number of previous injections: 2 Improvement with previous injections: No Number of Physical Therapy sessions: 2 Improvement with PT: No Improvement with NSAIDS: n/a Review of Systems Review of Systems: All systems negative unless otherwise noted in HPI.
[2025-01-07 09:58] VITALS: BP 123/76; PULSE 66; RESP 18; TEMP 36; O2SAT 92; BMI 33.1
== END 2025-01-07 10:02 | disposition home or self-care (01) ==
LOC: HODSRG 09:36
PROVIDERS: PCP Family Medicine; Referring Provider Family Medicine; Supervising Provider Orthopaedic Surgery Adult Reconstructive Orthopaedic Surgery; Visit Provider Orthopaedic Surgery Adult Reconstructive Orthopaedic Surgery
DX: S82.141D Displaced bicondylar fracture of right tibia, subsequent encounter for closed fracture with routine healing (principal); X58.XXXD Exposure to other specified factors, subsequent encounter; M17.11 Unilateral primary osteoarthritis, right knee; E78.00 Pure hypercholesterolemia, unspecified; M25.561 Pain in right knee
CPT/HCPCS: 99213; G0463

== ENCOUNTER 2025-02-25 14:19 | Outpatient (AMB) | payer MEDICARE, MEDICAID, SELFPAY ==
--- NOTE | 2025-02-25 14:46 | PD.ORTHCLVIS ---
Vital signs 02/25/25 14:47 Height 1.5 m Height Method Stated Weight 74.531 kg Weight Measurement Method Standing Scale BMI 33.1 BP 145/70 H Blood Pressure Source Automatic Cuff Blood Pressure Location Left Upper Arm Position Sitting Respiration 20 Pulse 76 Pulse Source Monitor Temp 98.0 F Temp Source Temporal Artery Scan Pulse Oximetry (%) 92 L Oxygen Delivery Method Room Air Med/Allergies Allergies & Medications Allergies gabapentin Allergy (Intermediate, Verified 02/25/25 14:48) swelling trazodone Allergy (Verified 02/25/25 14:48) Blister Medication Reconciliation hydroxyzine HCl 25 mg tablet 25 mg PO HS PRN imsomnia 01/30/24 [History Confirmed 02/25/25] vitamin E (dl, acetate) 180 mg (400 unit) capsule 180 mg PO QDAY 01/30/24 [History Confirmed 02/25/25] ascorbic acid (vitamin C) 1,000 mg tablet (C-1000) 1 g PO QDAY 12/19/24 [History Confirmed 02/25/25] atorvastatin 20 mg tablet (Lipitor) 20 mg PO QDAY 12/19/24 [History Confirmed 02/25/25] calcium 600 mg (as carbonate)-vitamin D3 5 mcg (200 unit) tablet 1 tab PO BID 12/19/24 [History Confirmed 02/25/25] docusate sodium 100 mg capsule (Colace) 100 mg PO BID 12/19/24 [History Confirmed 02/25/25] esomeprazole magnesium 40 mg capsule,delayed release 40 mg PO DAILY 12/19/24 [History Confirmed 02/25/25] lactulose 10 gram/15 mL oral solution 30 g PO DAILY PRN constipation 12/19/24 [History Confirmed 02/25/25] morphine 15 mg immediate release tablet 15 mg PO DAILY PRN pain 12/19/24 [History Confirmed 02/25/25] morphine 30 mg tablet,extended release 30 mg PO DAILY 12/19/24 [History Confirmed 02/25/25] multivitamin (Daily Multi-Vitamin tablet) 1 tab PO QAM 12/19/24 [History Confirmed 02/25/25] sertraline 100 mg tablet (Zoloft) 100 mg PO QDAY 12/19/24 [History Confirmed 02/25/25] aspirin 81 mg tablet,delayed release 81 mg PO BID #60 tabs 12/23/24 [Rx Confirmed 02/25/25] doxycycline hyclate 100 mg tablet 100 mg PO BID #14 tabs 12/23/24 [Rx Confirmed 02/25/25] sennosides 8.6 mg-docusate sodium 50 mg tablet (Senna-S) 1 tab-cap PO QDAY #30 tabs 12/23/24 [Rx Confirmed 02/25/25] Exam Exam Patient is in no acute distress and is cooperative with the examination today. Breathing is nonlabored. Patient has a normal mood and affect. Bilateral extremities were evaluated and demonstrates sensation intact to light touch. Palpable pedal pulses are present. No significant edema is present. Bilateral hips were examined. The patient has no pain with log roll of the hips. Internal rotation to 30 degrees and external rotation to 30 degrees is painless. Negative FADIR. Left knee was examined today. The left knee is in reasonable alignment. Range of motion from 0-120 degrees. Knee is stable to varus and valgus as well as AP translation with <5mm. Patient has a negative McMurrays. There is no pain with patellofemoral compression and no crepitus noted. The knee is nontender to palpation. Right knee incisions clean dry intact. Range of motion is 0 to 105 degrees at this time. There is minimal swelling. The incision is clean dry and intact Assessment and Plan Problem List (1) Right medial tibial plateau fracture: Status: Acute (2) Arthritis of right knee: Status: Acute Plan: Patient is a 73-year-old female with Severe arthritis of the right knee. She is status post right total knee replacement and is doing well. We will see her back in 3 months and we will get new x-rays Advanced Care Planning Discussion Advance care planning discussed with:: patient Office Procedures GNS Level of Care Nursing/Assessment Patient Status: Established Patient Nursing Assessment/Reassesment: Medication Reconciliation, Update PMH in EMR and Vital Signs Coordination of Care: Complex Care and Chronic Disease 1-5, Education Complex Pt/Fam, Consent,records obtained, informed consent, Results/Orders obtained and Staff clarify orders Established Patient Charge Established Patient Point Assignment: 95 Established Patient Point Charge: EP Level 3 (80-115) MA Intake Visit Data Collection New Patient or Established: Established Patient (seen at [facility] within 3 years) Seen by Clinical Staff ONLY (RN/MA): No Cash Applications Analyst Required: No PCP or OBGYN visit in last 3 months: Yes Hx Now: No Do You Feel Safe at Home: Yes Authorities Contacted: N/A Questionairres Past Medical History Past Medical History Have you ever been diagnosed with any of the following: Neurological Problems Seizures: No Cardiology Problems Hypercholesterolemia: Yes Congestive Heart Failure: No Respiratory Problems Chronic Obstructive Pulmonary Disease (COPD): No Smoking: No Smoking Cessation Counseling: No Smoking Exposure: No Stomache/Intestinal Problems Hepatitis: No Hiatal Hernia: Yes Genital/Urinary Problems Renal Disease: No Reproductive Problems Previous Pregnancies: Yes Musculoskeletal Problems Arthritis: Yes Degenerative Disk Disease: Yes Fractures: Yes (vertabrae) Endocrine Problems Diabetes Mellitus Type 1: No Diabetes Mellitus Type 2: No Psychologic Problems Depression: Yes Anxiety: Yes Other Problems Hospitalization: Yes (surgery) Shingles: No Falls: Yes Blood Transfusions: No Anesthesia Reactions: No Cancer: No Subjective Visit Visit for: follow up visit, post op #1 and knee (RIGHT ) Immunization / Flu Flu Vaccine in the Last 12 Months: Yes Flu Vaccine Exclusion Criteria: Already Received History of Present Illness Chief complaint: right knee osteoarthritis Megha is a 74-year-old female with right knee pain and right knee arthritis. She is status post right total knee replacement. She is 2 months out from surgery. She is doing well. Using a walker Personal History Occupation: RETIRED Red flag PMH: none BMI Counceling provided: Yes Pain Pain level (0-10): 6 Pain duration: 1 MONTH Pain location: anterior Pain quality: sharp and other (specify) (SWELLING/CRAMPING ) Pain timing: increases with activity Associated signs & symptoms: none Ambulatory data Ambulatory device: walker Walking distance (minutes): 1 Treatments Number of previous injections: 2 Improvement with previous injections: No Number of Physical Therapy sessions: 2 Improvement with PT: No Improvement with NSAIDS: n/a Review of Systems Review of Systems: All systems negative unless otherwise noted in HPI.
[2025-02-25 14:47] VITALS: BP 145/70; PULSE 76; RESP 20; TEMP 36.7; O2SAT 92; BMI 33.1
--- NOTE | 2025-02-25 15:00 | XR_ITS ---
Examination: Bilateral AP knees single view Right knee PA lateral axial 3 views TECHNIQUE: Bilateral AP knees standing single view Right knee PA standing flexion, lateral standing, axial right knee 3 views total 4 views Date and time: February 25, 2025 1522 hours INDICATIONS: Knee pain months. FINDINGS: Moderate osteopenia Total right knee arthroplasty. Satisfactory alignment. No fracture. No loosening the prosthetic components. No patellar dislocation Moderate narrowing medial joint space left knee No fracture IMPRESSION: Total right knee arthroplasty with satisfactory alignment
== END 2025-02-25 15:01 | disposition home or self-care (01) ==
LOC: HODSRG 14:19
PROVIDERS: PCP Family Medicine; Referring Provider Family Medicine; Supervising Provider Orthopaedic Surgery Adult Reconstructive Orthopaedic Surgery; Visit Provider Orthopaedic Surgery Adult Reconstructive Orthopaedic Surgery
DX: S82.141D Displaced bicondylar fracture of right tibia, subsequent encounter for closed fracture with routine healing (principal); X58.XXXD Exposure to other specified factors, subsequent encounter; M17.11 Unilateral primary osteoarthritis, right knee; Z96.651 Presence of right artificial knee joint; M25.561 Pain in right knee; E78.00 Pure hypercholesterolemia, unspecified
CPT/HCPCS: 73564; 99213; G0463

== ENCOUNTER 2025-05-27 13:30 | Outpatient (AMB) | payer MEDICARE, MEDICAID, SELFPAY ==
--- NOTE | 2025-05-27 14:16 | PD.ORTHCLVIS ---
Vital signs 05/27/25 14:18 Height 1.5 m Height Method Stated Weight 75.466 kg Weight Measurement Method Standing Scale BMI 33.5 BP 127/72 Blood Pressure Source Automatic Cuff Blood Pressure Location Left Upper Arm Position Sitting Respiration 18 Pulse 63 Pulse Source Monitor Temp 97.4 F Temp Source Temporal Artery Scan Pulse Oximetry (%) 91 L Oxygen Delivery Method Room Air Med/Allergies Allergies & Medications Allergies gabapentin Allergy (Intermediate, Verified 05/27/25 14:18) swelling trazodone Allergy (Verified 05/27/25 14:18) Blister Medication Reconciliation hydroxyzine HCl 25 mg tablet 25 mg PO HS PRN imsomnia 01/30/24 [History Confirmed 05/27/25] vitamin E (dl, acetate) 180 mg (400 unit) capsule 180 mg PO QDAY 01/30/24 [History Confirmed 05/27/25] ascorbic acid (vitamin C) 1,000 mg tablet (C-1000) 1 g PO QDAY 12/19/24 [History Confirmed 05/27/25] atorvastatin 20 mg tablet (Lipitor) 20 mg PO QDAY 12/19/24 [History Confirmed 05/27/25] calcium 600 mg (as carbonate)-vitamin D3 5 mcg (200 unit) tablet 1 tab PO BID 12/19/24 [History Confirmed 05/27/25] docusate sodium 100 mg capsule (Colace) 100 mg PO BID 12/19/24 [History Confirmed 05/27/25] esomeprazole magnesium 40 mg capsule,delayed release 40 mg PO DAILY 12/19/24 [History Confirmed 05/27/25] lactulose 10 gram/15 mL oral solution 30 g PO DAILY PRN constipation 12/19/24 [History Confirmed 05/27/25] morphine 15 mg immediate release tablet 15 mg PO DAILY PRN pain 12/19/24 [History Confirmed 05/27/25] morphine 30 mg tablet,extended release 30 mg PO DAILY 12/19/24 [History Confirmed 05/27/25] multivitamin (Daily Multi-Vitamin tablet) 1 tab PO QAM 12/19/24 [History Confirmed 05/27/25] sertraline 100 mg tablet (Zoloft) 100 mg PO QDAY 12/19/24 [History Confirmed 05/27/25] aspirin 81 mg tablet,delayed release 81 mg PO BID #60 tabs 12/23/24 [Rx Confirmed 05/27/25] doxycycline hyclate 100 mg tablet 100 mg PO BID #14 tabs 12/23/24 [Rx Confirmed 05/27/25] sennosides 8.6 mg-docusate sodium 50 mg tablet (Senna-S) 1 tab-cap PO QDAY #30 tabs 12/23/24 [Rx Confirmed 05/27/25] Exam Exam Patient is in no acute distress and is cooperative with the examination today. Breathing is nonlabored. Patient has a normal mood and affect. Bilateral extremities were evaluated and demonstrates sensation intact to light touch. Palpable pedal pulses are present. No significant edema is present. Bilateral hips were examined. The patient has no pain with log roll of the hips. Internal rotation to 30 degrees and external rotation to 30 degrees is painless. Negative FADIR. Left knee was examined today. The left knee is in reasonable alignment. Range of motion from 0-120 degrees. Knee is stable to varus and valgus as well as AP translation with <5mm. Patient has a negative McMurrays. There is no pain with patellofemoral compression and no crepitus noted. The knee is nontender to palpation. Right knee incisions clean dry intact. Range of motion is 0 to 105 degrees at this time. There is minimal swelling. The incision is clean dry and intact Assessment and Plan Problem List (1) Right medial tibial plateau fracture: Status: Acute (2) Arthritis of right knee: Status: Acute Plan: Patient is a 75-year-old female with Severe arthritis of the right knee. She is status post right total knee replacement and is doing well. We will see her back in 12 months and we will get new x-rays Advanced Care Planning Discussion Advance care planning discussed with:: patient Office Procedures GNS Level of Care Nursing/Assessment Patient Status: Established Patient Nursing Assessment/Reassesment: Medication Reconciliation, Update PMH in EMR and Vital Signs Coordination of Care: Complex Care and Chronic Disease 1-5, Education Complex Pt/Fam, Consent,records obtained, informed consent, Results/Orders obtained and Staff clarify orders Established Patient Charge Established Patient Point Assignment: 95 Established Patient Point Charge: EP Level 3 (80-115) MA Intake Visit Data Collection New Patient or Established: Established Patient (seen at [facility] within 3 years) Reason for Visit:: TKA/XRAY RESULTS Seen by Clinical Staff ONLY (RN/MA): No Bench 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 Required: No PCP or OBGYN visit in last 3 months: Yes Hx Now: No Do You Feel Safe at Home: Yes Authorities Contacted: N/A Questionairres Past Medical History Past Medical History Have you ever been diagnosed with any of the following: Neurological Problems Seizures: No Cardiology Problems Hypercholesterolemia: Yes Congestive Heart Failure: No Respiratory Problems Chronic Obstructive Pulmonary Disease (COPD): No Smoking: No Smoking Cessation Counseling: No Smoking Exposure: No Stomache/Intestinal Problems Hepatitis: No Hiatal Hernia: Yes Genital/Urinary Problems Renal Disease: No Reproductive Problems Previous Pregnancies: Yes Musculoskeletal Problems Arthritis: Yes Degenerative Disk Disease: Yes Fractures: Yes (vertabrae) Endocrine Problems Diabetes Mellitus Type 1: No Diabetes Mellitus Type 2: No Psychologic Problems Depression: Yes Anxiety: Yes Other Problems Hospitalization: Yes (surgery) Shingles: No Falls: Yes Blood Transfusions: No Anesthesia Reactions: No Cancer: No Subjective Visit Visit for: follow up visit, post op #2 and knee (RIGHT ) Immunization / Flu Flu Vaccine in the Last 12 Months: Yes Flu Vaccine Exclusion Criteria: Already Received History of Present Illness Chief complaint: right knee osteoarthritis Megha is a 74-year-old female with right knee pain and right knee arthritis. She is status post right total knee replacement. She is 5 months out from surgery. She is doing well. Using a walker Personal History Occupation: RETIRED Red flag PMH: none BMI Counceling provided: Yes Pain Pain level (0-10): 6 Pain duration: 1 MONTH Pain location: anterior Pain quality: sharp and other (specify) (SWELLING/CRAMPING ) Pain timing: increases with activity Associated signs & symptoms: none Ambulatory data Ambulatory device: walker Walking distance (minutes): 1 Treatments Number of previous injections: 2 Improvement with previous injections: No Number of Physical Therapy sessions: 2 Improvement with PT: No Improvement with NSAIDS: n/a Review of Systems Review of Systems: All systems negative unless otherwise noted in HPI.
[2025-05-27 14:18] VITALS: BP 127/72; PULSE 63; RESP 18; TEMP 36.3; O2SAT 91; BMI 33.5
== END 2025-05-27 14:54 | disposition home or self-care (01) ==
LOC: HODSRG 13:30
PROVIDERS: PCP Family Medicine; Referring Provider Family Medicine; Supervising Provider Orthopaedic Surgery Adult Reconstructive Orthopaedic Surgery; Visit Provider Orthopaedic Surgery Adult Reconstructive Orthopaedic Surgery
DX: M17.11 Unilateral primary osteoarthritis, right knee (principal); Z96.651 Presence of right artificial knee joint
CPT/HCPCS: 99213; G0463